=== PATIENT | male | born 1995 | race Two or more races ===

== ENCOUNTER 2017-07-27 03:42 | Emergency (ER) | payer OTHER ==
[2017-07-27 03:52] VITALS: BP 129/71; PULSE 102; BMI 22.8
--- NOTE | 2017-07-27 04:25 | PDOC ---
History of Present Illness - General History Source: Patient Exam Limitations: No Limitations - History of Present Illness Initial Comments: 07/27/17 04:30 HISTORY OF PRESENT ILLNESS The patient is a 22 year old male with a significant PMH of asthma who presents to the emergency department with lacerations to the RLE from about 30 minutes ago. The patient was trying to get into his house and put his hand through the front window, which shattered and resulted in the lacerations. The patient presents to the ED actively bleeding with a blood soaked towel around his arm. The patient denies chest pain, shortness of breath, headache and dizziness. Denies fever, chills, nausea, vomit, diarrhea and constipation. Denies dysuria, frequency, urgency and hematuria. PAST MEDICAL HISTORY: Asthma. PAST SURGICAL HISTORY: No significant history. FAMILY HISTORY: No pertinent history. SOCIAL HISTORY: Everyday smoker. Pt lives with family. MEDICATIONS: Reviewed. ALLERGIES: Sedex. REVIEW OF SYSTEMS General: No fevers or chills, no weakness, no weight loss HEENT: No change in vision. No sore throat,. No ear pain CardioVascular: No chest pain or shortness of breath Respiratory:No cough, or wheezing. Gastrointestinal: No nausea, vomiting, diarrhea or constipation, No rectal bleeding Genitourinary: No dysuria, hematuria, or frequency Musculoskeletal: No joint or muscle pain or swelling Neurologic: No headache, vertigo, dizziness or loss of consciousness Psychiatric: nor depression Skin: (+) Laceration on the right forearm. No rashes or easy bruising Endocrine: no increased thirst or abnormal weight change Allergic: no skin or latex allergy All other systems reviewed and normal PHYSICAL EXAM GENERAL: The patient is awake, alert, and fully oriented, in no acute distress. HEAD: Normal with no signs of trauma. EYES: Pupils equal, round and reactive to light, extraocular movements intact, sclera anicteric, conjunctiva clear. EXTREMITIES: (+) 10 cm. Laceration to right forearm, fascia over muscle. Involved with some bulging of the muscle through the fascia. On exploration in a near bloodless field, no tendon injury visible. (+) 3 cm. Laceration on medial aspect of wrist, slightly distal to larger laceration. V-shaped, fascia intact, no active bleeding. Full ROM in hands and wrist distally with normal sensation. NEUROLOGICAL: Normal speech, normal gait. PSYCH: Normal mood, normal affect SKIN: Warm, Dry, normal turgor, no rashes or lesions noted. <Kun Hernandez - Last Filed: 07/27/17 04:30> - General History Source: Patient Exam Limitations: No Limitations - History of Present Illness Initial Comments: 07/27/17 05:11 procedure note: Laceration repair: 10cm lac all lacs were anesthetized with 1% lido, no epi. cleaned with NS. tourniquet was applied to maintain a bloodless field. fascia over muscle was closed with 8 deep sutures of 4.0 plain gut. Skin was approximated with 5 sutures of 3.0 ethilon and closed with 11 wilber 2nd lac cleaned with NS. closed with 7 wilber and 3 sutures of 4.0 ethilon small lac cleaned NS closed with 3 wilber. Bacitracin and sterile dressing applied Pt. ping. well Assessment and plan: This is a 22-year-old male who comes in status post cutting his arm on a glass window that he broke patient had multiple large lacerations with profuse bleeding. Patient's arm tourniquet in order to repair the laceration. Muscle was exposed on his forearm which had to have the fascia repaired with absorbable sutures. In addition to that skin was closed with both sutures and wilber. The patient was given Augmentin to prevent infection and discharged on Augmentin. Patient was given wound care instructions and will follow-up with his doctor in 10-12 days for staple and suture removal. 07/27/17 05:23 <Nick Toussaint I - Last Filed: 07/27/17 05:23> - General Chief Complaint: Laceration Stated Complaint: R HAND INJURY Time Seen by Provider: 07/27/17 04:15 Past History <Kun Hernandez - Last Filed: 07/27/17 04:30> - Past Medical History Asthma: Yes - Psycho/Social/Smoking Cessation Hx Anxiety: No Suicidal Ideation: No Smoking History: Current every day smoker Have you smoked in the past 12 months: Yes Number of Cigarettes Smoked Daily: 10 Information on smoking cessation initiated: No Hx Alcohol Use: (social) Drug/Substance Use Hx: No Substance Use Type: Alcohol <Nick Toussaint I - Last Filed: 07/27/17 05:23> - Past Medical History Allergies/Adverse Reactions: Allergies Allergy/AdvReac Type Severity Reaction Status Date / Time No Known Allergies Allergy Verified 07/27/17 03:49 Home Medications: Ambulatory Orders Amoxicillin/Potassium Clav [Augmentin 500-125 Tablet] 1 each PO BID #14 tablet 07/27/17 *Physical Exam - Vital Signs Last Vital Signs Temp Pulse Resp BP Pulse Ox 102 H 18 129/71 98 07/27/17 03:48 07/27/17 03:48 07/27/17 03:48 07/27/17 03:48 <Kun Hernandez - Last Filed: 07/27/17 04:30> - Vital Signs Last Vital Signs Temp Pulse Resp BP Pulse Ox 102 H 18 129/71 98 07/27/17 03:48 07/27/17 03:48 07/27/17 03:48 07/27/17 03:48 <Nick Toussaint I - Last Filed: 07/27/17 05:23> ED Treatment Course - LABORATORY CBC & Chemistry Diagram: 07/27/17 04:30 <Nick Toussaint I - Last Filed: 07/27/17 05:23> *DC/Admit/Observation/Transfer - Attestations Scribe Attestion: 07/27/17 04:31 Documentation prepared by Kun Hernandez, acting as medical transport specialist for Nick Toussaint MD. <Kun Hernandez - Last Filed: 07/27/17 04:30> - Discharge Dispostion Admit: No <Nick Toussaint I - Last Filed: 07/27/17 05:23> Diagnosis at time of Disposition: Forearm laceration Qualifiers: Encounter type: initial encounter Laterality: right Qualified Code(s): S51.811A - Laceration without foreign body of right forearm, initial encounter - Prescriptions Prescriptions: Amoxicillin/Potassium Clav [Augmentin 500-125 Tablet] 1 each PO BID #14 tablet - Referrals Referrals: Doris Silva [Primary Care Provider] - - Patient Instructions Printed Discharge Instructions: DI for Laceration Repair Additional Instructions: And suture removal in 10-12 days. See your doctor or return to the ER for removal. Clean the laceration once a day with a little peroxide and reapply a dressing and Bruce wrap for the next 3-4 days after that you can just cover a clean dressing. Leave the Bruce wrap in place until tomorrow morning. No sports or basketball for 2 weeks. Take Augmentin one tablet twice a day for 7 days to prevent infection. Return to the emergency department immediately with ANY new, persistent or worsening symptoms. Continue any medications as previously prescribed by your physician. You should follow up with your primary doctor as soon as possible regarding today's emergency department visit. . Please make sure your doctor reviews the results of your emergency evaluation. Thank you for coming to the Emergency Department today for your care. It was a pleasure to see you today. Please note that your evaluation is INCOMPLETE until you follow-up with your doctor.
[2017-07-27] MEDS ORDERED: LACTATED RINGERS SOLUTION 1,000 ML IV SCH (04:30)
[2017-07-27 04:37] LABS: BASOPHIL 0.3 % (0-2.0); EOSINOPHIL 0.9 % (0-4.5); MCH 29.9 pg (25.7-33.7); MCHC 33.9 g/dl (32.0-35.9); MEAN CELL VOLUME 88.3 fl (80-96); MEAN PLT VOLUME 9.3 fl (7.5-11.1); NEUTROPHILS 70.3 % (42.8-82.8); PLATELET COUNT 181 K/MM3 (134-434); RDW 13.4 % (11.9-15.9); WHITE BLOOD COUNT 10.7 K/mm3 (4.0-10.0)
[2017-07-27] MEDS ORDERED: AMOX TR/POT CLAV 500MG/125MG TABLETS (FP) PO ONE (05:03)
[2017-07-27] MEDS ORDERED: AMOX TR/POT CLAV 500MG/125MG TABLETS (FP) ONE (05:04)
== END 2017-07-27 05:14 | disposition home or self-care (01) ==
LOC: JER 03:42
PROC: 0JQH0ZZ Repair Left Lower Arm Subcutaneous Tissue and Fascia, Open Approach (ICD-10-PCS; principal; 2017-07-27)
DX: S51.812A Laceration without foreign body of left forearm, initial encounter (principal); S61.512A Laceration without foreign body of left wrist, initial encounter; W25.XXXA Contact with sharp glass, initial encounter; Y93.89 Activity, other specified; Y92.038 Other place in apartment as the place of occurrence of the external cause; Y99.8 Other external cause status
CPT/HCPCS: 12035; 36415; 85025; 99281-25

== ENCOUNTER 2019-02-23 22:59 | Emergency (ER) | payer OTHER ==
[2019-02-23 23:06] VITALS: BP 136/73; PULSE 97; TEMP 98.2; BMI 22.6
[2019-02-23] MEDS ORDERED: AZITHROMYCIN 500 MG TABLET PO ONE (23:30)
[2019-02-23] MEDS ORDERED: cefTRIAXone SODIUM 1 GM VIAL ONE (23:41)
[2019-02-23] MEDS ORDERED: LIDOCAINE HCL 1%, 10 MG/ML (20ML VIAL) ONE (23:41)
--- NOTE | 2019-02-23 23:58 | PDOC ---
Documentation entered by David Harris SCRIBE, acting as scribe for Chyna Rock MD. History of Present Illness - General Chief Complaint: HIV Testing Stated Complaint: SICK Time Seen by Provider: 02/23/19 23:17 History Source: Patient Exam Limitations: No Limitations - History of Present Illness Initial Comments: 02/23/19 23:40 The patient is a 23 year old male with a significant past medical history of asthma who presents to the emergency department for sexual exposure to STDs. the patient reports that he had sex with his girlfriend who got tested and was found to have chlamydia. The patient also reports sexual encounter with another person with known STD. he state sthat he wasted to come to the ED to be tested for both STD and HIV . he denies any recent pain or discomfort. He denies any other symptoms or complains. Past History - Past Medical History Allergies/Adverse Reactions: Allergies Allergy/AdvReac Type Severity Reaction Status Date / Time No Known Allergies Allergy Verified 02/23/19 23:06 Home Medications: Ambulatory Orders Amoxicillin/Potassium Clav [Augmentin 500-125 Tablet] 1 each PO BID #14 tablet 07/27/17 Asthma: Yes CVA: No COPD: No - Suicide/Smoking/Psychosocial Hx Smoking History: Never smoked Have you smoked in the past 12 months: Yes Number of Cigarettes Smoked Daily: 10 Hx Alcohol Use: (social) Drug/Substance Use Hx: No Substance Use Type: Alcohol Review of Systems - Review of Systems Comments:: 02/23/19 23:40 GENERAL/CONSTITUTIONAL: (+)STD exposure. No fever or chills. No weakness. HEAD, EYES, EARS, NOSE AND THROAT: No change in vision. No ear pain or discharge. No sore throat. CARDIOVASCULAR: No chest pain or shortness of breath. RESPIRATORY: No cough, wheezing, or hemoptysis. GASTROINTESTINAL: No nausea, vomiting, diarrhea or constipation. GENITOURINARY: No dysuria, frequency, or change in urination. MUSCULOSKELETAL: No joint or muscle swelling or pain. No neck or back pain. SKIN: No rash NEUROLOGIC: No headache, vertigo, loss of consciousness, or change in strength/ sensation. ENDOCRINE: No increased thirst. No abnormal weight change. HEMATOLOGIC/LYMPHATIC: No anemia, easy bleeding, or history of blood clots. ALLERGIC/IMMUNOLOGIC: No hives or skin allergy. *Physical Exam - Vital Signs Last Vital Signs Temp Pulse Resp BP Pulse Ox 98.2 F 97 H 18 136/73 98 02/23/19 23:04 02/23/19 23:04 02/23/19 23:04 02/23/19 23:04 02/23/19 23:04 - Physical Exam Comments: 02/23/19 23:40 GENERAL: Awake, alert, and fully oriented, in no acute distress HEAD: No signs of trauma EYES: PERRLA, EOMI, sclera anicteric, conjunctiva clear ENT: Auricles normal inspection, hearing grossly normal, nares patent, oropharynx clear without exudates. Moist mucosa NECK: Normal ROM, supple, no lymphadenopathy, JVD, or masses LUNGS: Breath sounds equal, clear to auscultation bilaterally. No wheezes, and no crackles HEART: Regular rate and rhythm, normal S1 and S2, no murmurs, rubs or gallops ABDOMEN: Soft, nontender, normoactive bowel sounds. No guarding, no rebound. No masses EXTREMITIES: Normal range of motion, no edema. No clubbing or cyanosis. No cords, erythema, or tenderness NEUROLOGICAL: Cranial nerves II through XII grossly intact. Normal speech, normal gait SKIN: Warm, Dry, normal turgor, no rashes or lesions noted. Medical Decision Making - Medical Decision Making Pt has at least one contact (and possibly a second) who have had a positive GC/ Chlamydia. Will treat empirically. Counseled him to avoid any sexual contact for 1 week, and that all contacts must be treated as well. *DC/Admit/Observation/Transfer Diagnosis at time of Disposition: STD exposure - Discharge Dispostion Disposition: HOME Condition at time of disposition: Stable Decision to Admit order: No - Referrals - Patient Instructions Printed Discharge Instructions: Facts About Sexually Transmitted Infections - Post Discharge Activity Chyna Rock MD: This documentation has been prepared by the Steven hudson Collisia, SCRIBE, under my direction and personally reviewed by me in its entirety. I confirm that the documentation accurately reflects all work, treatment, procedures, and medical decision making performed by me.
== END 2019-02-24 02:59 | disposition home or self-care (01) ==
LOC: JER 22:59
DX: Z20.2 Contact with and (suspected) exposure to infections with a predominantly sexual mode of transmission (principal)
CPT/HCPCS: 36415; 87389; 87491; 87591; 96372; 99281-25

== ENCOUNTER 2024-04-05 00:07 | Emergency (ER) | payer SELFPAY ==
[2024-04-05 00:12] VITALS: BP 126/76; PULSE 110; RESP 16; TEMP 98.6; BMI 23.5
[2024-04-05] MEDS ORDERED: ACETAMINOPHEN 325 MG TABLET (FP) ONE (01:14)
[2024-04-05] MEDS ORDERED: BACITRACIN 0.9 GM PACKET ONE ×2 (01:14→01:30)
[2024-04-05] MEDS ORDERED: AMPICILLIN NA/SULBACTAM NA 3 GM/100 ML BAG IVPB ONE (01:14)
[2024-04-05] MEDS: BACITRACIN 0.9 GM PACKET TP ONE (01:16)
[2024-04-05] MEDS: ACETAMINOPHEN 500 MG TABLET (FP) PO ONE (01:21)
[2024-04-05] MEDS: AMPICILLIN NA/SULBACTAM NA 3 GM in DEXTROSE 5%-WATER 100 ML IVPB ONE (01:21)
[2024-04-05] MEDS ORDERED: BACITRACIN ZINC 15 GM TUBE TOPICAL OINTMENT ONE (01:38)
== END 2024-04-05 01:44 | disposition home or self-care (01) ==
LOC: JER 00:07
DX: S01.312A Laceration without foreign body of left ear, initial encounter (principal); S40.212A Abrasion of left shoulder, initial encounter; W50.3XXA Accidental bite by another person, initial encounter
CPT/HCPCS: 99284-25